=== PATIENT | male | born 1985 | race African-American/Black ===

== ENCOUNTER 2022-05-10 11:37 | Day surgery (SDC) | payer OTHER ==
[~2022-05-10] VITALS: Ht 172.7 cm; Wt 70.8 kg
[~2022-05-10 11:37] MED LIST: NS 1,000 ML IV ONE; OMEP40CA4 PO
[2022-05-10] MEDS ORDERED: LIDOCAINE 2% 100MG/5ML SDV (FOR ANES.) As Ordered ONE (13:10)
[2022-05-10] MEDS ORDERED: fentaNYL 100 MCG/2 ML INJECTION As Ordered ONE (13:10)
[2022-05-10] MEDS ORDERED: propofoL 200 MG/20 ML VIAL As Ordered ONE (13:10)
[2022-05-10 13:45] VITALS: BP 126/75
== END 2022-05-10 13:56 | disposition home or self-care (01) ==
LOC: M OPP 11:37 → EDSEX 14:15
PROVIDERS: ATTEND Internal Medicine Gastroenterology
DX: R10.13 Epigastric pain (principal); R14.0 Abdominal distension (gaseous); K21.9 Gastro-esophageal reflux disease without esophagitis; F32.A Depression, unspecified; G47.30 Sleep apnea, unspecified; Z79.899 Other long term (current) drug therapy
CPT/HCPCS: 43239; 88305; J3010